=== PATIENT | male | born 1985 | race Two or more races ===

== ENCOUNTER 2025-01-21 21:04 | Emergency (ER) | payer OTHER ==
[~2025-01-21] VITALS: Ht 170.2 cm; Wt 82.3 kg
--- NOTE | 2025-01-21 22:12 | DVH ---
CLINICAL INDICATION: Right shoulder pain TECHNIQUE: XYXY R SHOULDER 2+ VIEW XRAY Comparison: None FINDINGS/IMPRESSION: : There is no evidence of acute fracture or dislocation. Soft tissues are unremarkable.
[2025-01-21 22:27] VITALS: BP 142/69; PULSE 73; RESP 18; TEMP 98.2; O2SAT 98
[2025-01-21] MEDS ORDERED: CYCL-837 PO (22:28)
[2025-01-21] MEDS ORDERED: IBUP-1456 PO (22:28)
--- NOTE | 2025-01-21 22:29 | ED.PDOC ---
Musculoskeletal HPI Comments 39-year-old male presents to ER with complaints of right shoulder pain x5 weeks. Patient reports that he has been experiencing right shoulder pain x5 weeks. Denies any trauma/falls or known injury but states he does do a lot of heavy lifting at work. He rates his current pain a 10/10 to right shoulder with radiation down right arm. States he has been taking ibuprofen for his pain without relief and notes he does have intermittent numbness/tingling down right arm. Denies neck pain, shortness of breath, chest pain, skin changes or any further symptoms/complaints Chief Complaint: Upper Extremity Time Seen by MD: 21:19 Primary Care Provider: UNKNOWN Reviewed Notes: Nurses Notes, Medications, Allergies Allergies: Coded Allergies: NO KNOWN ALLERGIES (Unverified , 01/21/25) Home Meds Active Scripts Ibuprofen (Ibuprofen) 800 Mg Tab, 1 TAB PO TID PRN, #30 TAB 0 Refills Prov:HEATHER STOLL 01/21/25 Cyclobenzaprine Hcl (Cyclobenzaprine Hcl) 5 Mg Tab, 1 TAB PO QHSP, #14 TAB 0 Refills Prov:HEATHER STOLL 01/21/25 Information Source: Patient Mode of Arrival: Ambulatory Past Medical History PAST MEDICAL HISTORY: Denies Surgical History: Denies all surgeries Family History Family History: Unknown Social History Smoker: Non-Smoker Alcohol: Denies ETOH Use Drugs: Denies Drug Use Lives In: Home Constitutional: denies: chills, diaphoresis, fatigue, fever, malaise, sweats, weakness, others EENTM: denies: blurred vision, double vision, ear bleeding, ear discharge, ear drainage, ear pain, ear ringing, eye pain, eye redness, hearing loss, mouth pain, mouth swelling, nasal discharge, nose bleeding, nose congestion, nose pain, photophobia, tearing, throat pain, throat swelling, voice changes, others Respiratory: denies: cough, hemoptysis, orthopnea, SOB at rest, shortness of breath, SOB with excertion, stridor, wheezing, others Cardiovascular: denies: chest pain, dizzy spells, diaphoresis, Dyspnea on exertion, edema, irregular heart beat, left arm pain, lightheadedness, palpitations, PND, syncope, others Gastrointestinal: denies: abdomen distended, abdominal pain, blood streaked bowels, constipated, diarrhea, dysphagia, difficulty swallowing, hematemesis, melena, nausea, poor appetite, poor fluid intake, rectal bleeding, rectal pain, vomiting, others Genitourinary: denies: burning, dysuria, flank pain, frequency, hematuria, inco ntinence, penile discharge, penile sore, pain, testicle pain, testicle swelling, urgency, others Neurological: denies: dizziness, fainting, headache, left sided numbness, left sided weakness, numbness, paresthesia, pre-existing deficit, right sided numbness, right sided weakness, seizure, speech problems, tingling, tremors, weakness, others Musculoskeletal: reports: others (As stated in HPI) Integumetry: denies: bruises, change in color, change in hair/nails, dryness, laceration, lesions, lumps, rash, wounds, others Allergic/Immunocompromised: denies: Difficulty Healing, Frequent Infections, Hives, Itching, others Hematologic/Lymphatic: denies: anemia, blood clots, easy bleeding, easy bruising, swollen glands, others Endocrine: denies: excessive hunger, excessive sweating, excessive thirst, excessive urination, flushing, intolerance to cold, intolerance to heat, unexplained weight gain, unexplained weight loss, others Psychiatric: denies: anxiety, bipolar disorder, depression, hopeless, panic disorder, schizophrenia, sleepless, suicidal, others Physical Exam General Appearance: No Apparent Distress HEENT: PERRL/EOMI Neck: Full Range of Motion, Non-Tender, Normal Respiratory: Chest Non-Tender, Lungs Clear, No Accessory Muscle Use, No Respiratory Distress, Normal Breath Sounds Cardiovascular: No Murmur, No Gallop, Regular Rate/Rhythm Breast Exam: Deferred Gastrointestinal: NOT DONE Genitalia: Deferred Pelvic: Deferred Rectal: Deferred Extremities: Normal capillary refill, Normal range of motion Musculoskeletal : Extremity Location: Shoulder (TTP centralized to right mid scapula noted. No deformity/skin changes noted. Negative Apley scratch test right shoulder. Pulses intact) Neurologic: Alert, No Motor Deficits, Normal Affect, Normal Mood, No Sensory Deficits Cerebellar Function: Normal Reflexes: Normal Skin: Dry, Normal Color, Warm Peripheral Pulses: 2+ Radial (R), 2+ Radial (L), 2+ Brachial (R), 2+ Brachial (L) Lymphatic: No Adenopathy Was a procedure done? Was a procedure done?: No Sedation Sedation?: No Differential Diagnosis EXT Differential Diagnosis: Fracture, Dislocation, Neurovascular injury, Other (mass) X-Ray, Labs, Meds, VS Vital Signs Date Time Temp Pulse Resp B/P (MAP) Pulse Ox O2 Delivery O2 Flow Rate FiO2 01/21/25 22:27 98.2 73 18 142/69 (93) 98 98.2 01/21/25 22:27 Room Air* 0 21 01/21/25 21:04 98.2 73 18 142/69 98 98.2 PATIENT: JAMIE VIEIRA LACCT: [id number]: [id number] : 1985 LOC: ER ROOM / BED: / AGE / SEX: 39 / M ADM STATUS: REG ER SERVICE 18 ORDERING PHYSICIAN: HEATHER STOLL PROCEDURE(s): RSHD2 - R SHOULDER 2+ VIEW XRAY REASON: Right shoulder pain ORDER NUMBER(s): [id number], ACCESSION NUMBER(s): [id number] CLINICAL INDICATION: Right shoulder pain TECHNIQUE: XYXY R SHOULDER 2+ VIEW XRAY Comparison: None FINDINGS/IMPRESSION: : There is no evidence of acute fracture or dislocation. Soft tissues are unremarkable. ATED BY: KUNAL ROBERTO MD DICTATED DATE/TIME: 01/21/252209 SIGNED BY: KUNAL ROBERTO MD SIGNED DATE/TIME: 01/21/252209 CC: Right shoulder x-ray reviewed Patient neurovascularly intact Advised to follow up with PCP and orthopedics in 1-2 days Patient verbalized understanding and agreeable with current plan of care Advised to return to ER immediately if symptoms worsen Images Reviewed?: Images reviewed and evaluated by me Time of 1ST Reevaluation: 22:02 Reevaluation 1ST: N/A Patient Education/Counseling: Diagnosis, Treatment, Prognosis, Need For Follow Up Family Education/Counseling: No Family Present Departure 1 Departure Time of Disposition: 22:22 Impression: Primary Impression: Right shoulder strain Qualified Codes: S46.911A - Strain of unspecified muscle, fascia and tendon at shoulder and upper arm level, right arm, initial encounter Disposition: 01 HOME / SELF CARE / HOMELESS Condition: Stable e-Prescriptions Ibuprofen (Ibuprofen) 800 Mg Tab 1 TAB PO TID PRN, #30 TAB 0 Refills Prov: HEATHER STOLL 01/21/25 Cyclobenzaprine Hcl (Cyclobenzaprine Hcl) 5 Mg Tab 1 TAB PO QHSP, #14 TAB 0 Refills Prov: HEATHER STOLL 01/21/25 Discharged With: Significant Other Critical Care Note Critical Care Time?: No Stability Stability form required: No Heart Score Heart Score: Heart Score Response (Comments) Value History N/A 0 EKG N/A 0 Age N/A 0 Risk Factors N/A 0 Troponin N/A 0 Total 0 HEATHER STOLL Jan 21, 2025 22:29
== END 2025-01-21 22:35 | disposition home or self-care (01) ==
LOC: ER 21:04
DX: S46.911A Strain of unspecified muscle, fascia and tendon at shoulder and upper arm level, right arm, initial encounter (principal); X58.XXXA Exposure to other specified factors, initial encounter; Y93.89 Activity, other specified; Y92.89 Other specified places as the place of occurrence of the external cause; Y99.8 Other external cause status
CPT/HCPCS: 73030